=== PATIENT | male | born 1965 | race Caucasian/White ===

== ENCOUNTER 2024-03-02 08:31 | Day surgery (SDC) | payer OTHER ==
[2024-03-01 15:11] LABS: BASOPHILS % (AUTO) 0.4 % (0-1); EOSINOPHILS % (AUTO) 0 % (0-6); HEMATOCRIT 42.6 % (42.0-52.0); HEMOGLOBIN 14.4 g/dl (14.0-17.9); LYMPHOCYTES # (AUTO) 1.7 X10'3 (1.1-4.8); LYMPHOCYTES % (AUTO) 32.7 % (21-51); MEAN CORPUSCULAR HEMOGLOBIN 32.3 PG (27.0-31.0); MEAN CORPUSCULAR HGB CONC 33.9 g/dL (33.0-36.5); MEAN CORPUSCULAR VOLUME 95.4 FL (78-98); MEAN PLATELET VOLUME 8.6 FL (7.4-10.4); MONOCYTES # (AUTO) 0.6 X10'3 (0-0.9); MONOCYTES % (AUTO) 11.6 % (2-12); NEUTROPHILS # (AUTO) 2.9 X10'3 (1.8-7.7); NEUTROPHILS % (AUTO) 55.3 % (42-75); PLATELET COUNT 168 X10'3 (140-440); RED BLOOD COUNT 4.47 X10'6 (4.70-6.10); RED CELL DISTRIBUTION WIDTH 13.1 % (11.5-14.5); WHITE BLOOD COUNT 5.3 X10'3 (4.5-11.0)
[2024-03-01 15:33] LABS: APTT 26 SECONDS (22-32); PROTHROMBIN TIME 10.6 SECONDS (9.0-12.0)
[2024-03-01 15:54] LABS: ALBUMIN 3.8 G/DL (3.4-5.0); ANION GAP 6 (8-16); BLOOD UREA NITROGEN 17 MG/DL (7-18); BUN/CREATININE RATIO 18.5 (10.0-20.0); CALCIUM 9.3 MG/DL (8.5-10.1); CHLORIDE 107 MMOL/L (99-107); CREATININE 0.92 MG/DL (0.60-1.10); GLUCOSE 95 MG/DL (70-104); POTASSIUM 4.1 MMOL/L (3.5-5.1); SODIUM 140 MMOL/L (135-145); TOTAL CARBON DIOXIDE 26.8 MMOL/L (24-32); eGFR 84 ML/MIN
[2024-03-02] VITALS (9 sets, daily range): BP systolic 132–164; BP diastolic 73–94; PULSE 12–72; RESP 12–14; TEMP 98.2; O2SAT 95–98
[~2024-03-02] VITALS: Ht 172.7 cm; Wt 88.1 kg
[2024-03-02] MEDS ORDERED: LAMO150T6 PO (10:00)
[2024-03-02] MEDS ORDERED: MELA5TAB12 PO (10:00)
[2024-03-02] MEDS: normal saline 1,000 ML IV SCH (10:22)
[2024-03-02] MEDS: diphenhydrAMINE 25mg capsule PO PRN (10:22)
[2024-03-02] MEDS: LORazepam 0.5 MG tablet PO PRN (10:22)
[2024-03-02] MEDS ORDERED: nitroGLYCERIN 500mcg/5mL D5W 5 ML IV ONE (11:54)
[2024-03-02] MEDS ORDERED: fentaNYL/PF 50MCG/1 ML 2ML syringe ONE (12:00)
[2024-03-02] MEDS ORDERED: LIDOcaine 1% (10mg/ml) 2ml vial ONE (12:00)
[2024-03-02] MEDS ORDERED: iohexol 350 MG/ML 50ML vial IV ONE (12:00)
[2024-03-02] MEDS ORDERED: verapamil 2.5 mg/ml inj IV ONE (12:00)
[2024-03-02] MEDS ORDERED: iohexol 350MG/ML 100ml bottle IV ONE (12:00)
[2024-03-02] MEDS ORDERED: heparin 1,000unit/ml 10ml vial 10 ML ONE (12:00)
[2024-03-02] MEDS ORDERED: midazolam 1 mg/ML 2ml injection ONE (12:00)
[2024-03-02 13:24] LABS: ISTAT HGB ART 14.3 g/dl (14.0-17.9); ISTAT Hct ART 42 %PCV (42-52); ISTAT O2 SATURATION ARTERIAL 93 % (95-98); ISTAT SOURCE ART
[2024-03-02] MEDS ORDERED: normal saline 1000ml 1,000 ML IV SCH (14:15)
[2024-03-03 07:21] LABS: ISTAT HGB MIX 13.6 g/dl (14.0-17.9); ISTAT Hct MIX 40 %PCV (42-52); ISTAT O2 SATURATION MIX VENOUS 60 % (60-80); ISTAT SOURCE VEN
== END 2024-03-02 17:30 | disposition home or self-care (01) ==
LOC: SSTAY O 08:31
PROVIDERS: ATTEND Internal Medicine Cardiovascular Disease
DX: I25.10 Atherosclerotic heart disease of native coronary artery without angina pectoris (principal); I35.1 Nonrheumatic aortic (valve) insufficiency; I71.21 Aneurysm of the ascending aorta, without rupture; J44.9 Chronic obstructive pulmonary disease, unspecified; Z79.01 Long term (current) use of anticoagulants
CPT/HCPCS: 36415; 80048; 82803; 85014; 85025; 85610; 85730; 93005; 93460; 93567; 99152; 99153; A6258; J1644; J2003; J2250; J3010; J3490; J7030; Q0163; Q9967; A6402; C1725; C1751; C1894